=== PATIENT | male | born 1975 | race Caucasian/White ===

== ENCOUNTER 2020-10-21 23:40 | Emergency (ER) | payer BC ==
--- OUTSIDE RECORDS SUMMARY | 2020-10-21 23:43 | XMS REPORT | Continuity of Care Document ---
:1975 Author Organization [facility] t Address [address] [place] [address] Care Team Providers Name Role Phone Team, Health Maintenance Attending Clinician Unavailable Akin Torres DO Attending Clinician Amos BRUSH Attending Clinician Nurse, Urgent Attending Clinician Unavailable Laureen TREJO Attending Clinician Payers Payer Name Policy Type Policy Number Effective Date Expiration Date S ource Problems This patient has no known problems. Allergies, Adverse Reactions, Alerts Allergy Allergy Status Severity Reaction(s) Onset Inactive Treating Comm ents Source Name Type Date Date Clinician No Known DA Active U [facility]ie 03-04 Clear s 00:00: [facility] No Known DA Active U [facility] Contrast 06-07 [place] Allergie 00:: [facility] No Known DA Active U [facility] Drug 06-07 [place] Allergie 00:: [facility] No Known DA Active U 2008- [facility] Food 06-07 [place] Allergie 00:: [facility] No Known DA Active U 2008- [facility] Other 06-07 [place] Allergie 00:: [facility] Medications This patient has no known medications. Procedures This patient has no known procedures. Encounters Start End Encounter Admission Attending Care Care Encounter Source Date/Time Date/Time Type Type Clinicians Facility Department ID 2020-06-15 2020-06-15 Telephone Team, [facility] GARY [id number] 00:00:00 00:00:00 Health [place] [id number]2.686 [phone] [id number] 2020-05-18 2020-05-18 Patient Brian [facility] [id number] 00:00:00 00:00:00 Outreach [place] PRIMARY [id number]2.7.2.686 [place] [phone] [id number] 2020-04-05 2020-04-05 Telephone Amos [facility] [id number] 00:00:00 00:00:00 [facility] [id number] [place] 4.2.7.2.686 [facility] [phone] Primary & 365 Specialty Care 2020-03-10 2020-03-10 [facility] [id number] 00:00:00 00:00:00 [facility] [id number] [place] [address] [place] [address] [phone] Primary & 365 Specialty Care 2020-03-04 2020-03-04 Nurse Nurse, [facility] [id number] 14:21:27 14:36:27 Visit Urgent HEALTH [id number] [place] [address] [place] [address] [phone] Primary & 370 Specialty Care 2020-03-04 2020-03-04 Urgent [facility] [id number] 13:45:00 14:00:00 Care [facility] HEALTH [id number] [place] 4.2.7.2.68[facility] [phone] Primary & 370 Specialty Care Results Test Description Test Time Test Comments Results Result Comments Source GLUBED 2020-03-06 07:26:00 Test Item Value Reference Range Interpretation Comme nts GLUBED (test code = GLUBED) 229 mg/dL 70-110 H BASIC METABOLIC [id number] 04:20:00 Test Item Value Reference Range Interpretation Comments SODIUM (test code = NA) 133 mmol/l 134.0-147.0 L POTASSIUM (test code = K) 3.8 mmol/L 3.6-5.2 N CHLORIDE (test code = CL) 99 mmol/l 98.0-107.0 N CARBON DIOXIDE (test code = CO2) 25.2 mmol/l 21.0-33.0 N ANION GAP (test code = GAP) 12.6 0-20 N GLUCOSE (test code = GLU) 303 mg/dl 70.0-110.0 H BLOOD UREA NITROGEN (test code = 9 mg/dl 7.0-18.0 N BUN) CREATININE (test code = CREAT) 0.83 mg/dL 0.60-1.30 N GFR NON BLACK (test code = 107 mL/min 95-105 H GFRNONBLACK) GFR BLACK (test code = GFRBLACK) 130 mL/min 115-127 H CALCIUM (test code = CA) 8.0 mg/dl 8.0-10.5 N [id number] 03:55:00 Test Item Value Reference Range Interpretation Comments HGBA1C% (test code = HGBA1C%) 10.1 %A1C 4.8-6.0 H ESTIMATED AVERAGE GLUCOSE (test 243 MG/DL code = EAG) CBC W/AUTO [id number] 03:55:00 Test Item Value Reference Range Interpretation Comments WHITE BLOOD CELL (test code = 8.5 K/mm3 4.5-11.0 N WBC) RED BLOOD CELL (test code = 5.26 M/mm3 4.40-5.90 N RBC) HEMOGLOBIN (test code = HGB) 14.9 gm/dL 13.0-17.0 N HEMATOCRIT (test code = HCT) 44.6 % 36.0-48.0 N MEAN CELL VOLUME (test code = 84.8 UM3 80.0-94.0 N MCV) MEAN CELL HGB (test code = MCH) 28.3 UUG 25.5-32.5 N MEAN CELL HGB CONCETRATION 33.4 gm/dL 29.0-35.5 N (test code = MCHC) RED CELL DISTRIBUTION WIDTH 12.1 % 11.5-15.0 N (test code = RDW) RED CELL DISTRIBUTION WIDTH SD 37.0 fL 34.8-50.2 N (test code = RDW-SD) PLATELET COUNT (test code = 219 K/mm3 150-400 N PLT) MEAN PLATELET VOLUME (test code 10.1 fl 7.4-10.4 N = MPV) NEUTROPHIL % (test code = NT%) 60.9 % 49.0-76.0 N IMMATURE GRANULOCYTE % (test 0.2 % 0.0-0.4 N code = IG%) LYMPHOCYTE % (test code = LY%) 29.3 % 23.0-38.0 N MONOCYTE % (test code = MO%) 6.7 % 1.0-10.0 N EOSINOPHIL % (test code = EO%) 2.4 % 1.0-5.0 N BASOPHIL % (test code = BA%) 0.5 % 0.0-1.0 N NUCLEATED RBC % (test code = 0.0 % 0.0-0.1 N NRBC%) NEUTROPHIL # (test code = NT#) 5.2 K/mm3 2.4-6.3 N IMMATURE GRANULOCYTE # (test 0.02 x10 3/uL 0.00-0.07 N code = IG#) LYMPHOCYTE # (test code = LY#) 2.5 K/mm3 1.2-4.0 N MONOCYTE # (test code = MO#) 0.6 K/mm3 0.0-0.6 N EOSINOPHIL # (test code = EO#) 0.2 K/MM3 0.0-0.7 N BASOPHIL # (test code = BA#) 0.0 K/mm3 0.0-0.2 N NUCLEATED RBC # (test code = 0.00 X10 3uL 0.00-0.01 N NRBC#) [id number] 20:23:00 Test Item Value Reference Range Interpretation Comments GLUBED (test code = GLUBED) 345 mg/dL 70-110 H [id number] 11:31:00 Test Item Value Reference Range Interpretation Comments GLUBED (test code = GLUBED) 233 mg/dL 70-110 H URINALYSIS [id number] 19:17:00 Test Item Value Reference Range Interpretation Comments UA COLOR (test code = YELLOW COLU) UA APPEARANCE (test code CLEAR = APPU) UA GLUCOSE DIPSTICK (test 1000 mg/dl mg/dl NORMAL A code = DGLUU) UA BILIRUBIN DIPSTICK NEGATIVE mg/dL NEGATIVE (test code = BILU) UA KETONE DIPSTICK (test 15 mg/dl mg/dl NEGATIVE A code = KETU) UA SPECIFIC GRAVITY (test 1.010 1.000-1.030 code = SGU) UA BLOOD DIPSTICK (test 10 Pieter/micL Pieter/micL NEGATIVE A code = JACQUELINE) UA PH DIPSTICK (test code 5.0 5.0-9.0 = PAT) UA PROTEIN DIPSTICK (test NEGATIVE mg/dl NEGATIVE code = PROU) UA UROBILINIOGEN DIPSTICK NORMAL mg/dl NORMAL (test code = URO) UA NITRITE DIPSTICK (test NEGATIVE NEGATIVE code = BRANDON) UA LEUKOCYTE ESTERASE NEGATIVE Xiomara/micL NEGATIVE DIPSTICK (test code = LEUU) UA WBC (test code = WBCU) NONE SEEN WBC/HPF NONE UA RBC (test code = RBCU) 1-3 RBC/HPF 0-3 UA EPITHELIAL CELLS (test 0-1 EPI/HPF 0-3 code = EPIU) UA BACTERIA (test code = TRACE NONE BACU) DRUGS OF ABUSE SCREEN [id number] 18:42:00 Test Item Value Reference Interpretation Comments Range URN COCAINE (test NEGATIVE NEGATIVE Cocaine cu t-off code = COCAURN) concentratio n: 300 ng/mL URN CANNABINOIDS NEGATIVE NEGATIVE Cannabinoid s cut-off (test code = concentration: 50 ng/mL CANNABURN) URN AMPHETAMINE NEGATIVE NEGATIVE Amphetamine cut-off (test code = concentration: 1000 ng/mL AMPHETURN) URN BARBITURATE NEGATIVE NEGATIVE Barbiturate cut-off (test code = concentration: 200 ng/mL BARBITURN) URN BENZODIAZEPINE NEGATIVE NEGATIVE Benzodiaz epine cut-off (test code = concentration: 200 ng/mL BENZOURN) URN OPIATES (test POSITIVE NEGATIVE A UNCONFIRME D INITIAL code = OPIATURN) SCREENING O NLY; SUGGEST ADDITIONALCONFI RMATORY TESTING.Opiates cut-off concentration: 200 ng/mL URN PHENCYCLIDINE NEGATIVE NEGATIVE Phencyclid ine(PCP) cut-off (PCP) (test code = concentra tion: 25 ng/ml PHENCURN) URN METHADONE (test NEGATIVE NEGATIVE code = METHAURN) - CT ABD PELVIS [id number] 16:40:00 [facility] [place] : 1975 Sex: M FAX: Kristin Weber MD [place]: St: REG Name: DINA RAMIREZ [facility] : 1975 Age/S: 44/M [address] [facility] Unit: [id number] Loc: E.ERS2 [place], [place] Phys: [place] [id number] Acct: [id number] Dis Date: Status: REG ER PHONE #: [phone] Exam Date: 03/04/2020 1623 FAX #: [phone] Reason: ABDOMINAL PAIN EXAMS: CPT CODE: [id number] CT ABD PELVIS W/CONT 24552 LOCATION: H43 EXAM: - CT ABD PELVISW/CONT HISTORY: 4 day history of abdominal pain. TECHNIQUE: Axial imagin g of the abdomen and pelvis from the lung base to the pubic symphysis following administrationof 100 mL Isovue-300 intravenous contrast. Sagittal and coronal reconstructions. CT scan performed using appropriate/available dose optimization/reduction techniques. DLP 829.8 mGy*cm COMPARISON: None. FINDINGS: Lung base:Mild bibasilar atelectasis. The heart size is normal. No pericardial or pleural effusion. Liver/spleen: The heart is mildly enlarged measuring 20.0 cm in length. Hepatic parenchymal density is diffusely decreased, consistent with fatty infiltration of the liver. Hepatic contour issmooth. The spleen is at the upper limit of normal in size measuring 13.0 cm in length. Biliary system: The gallbladder is unremarkable. No biliary duct dilatation. Pancreas: Unremarkable. Adrenal glands: Normal. Kidneys: Unremarkable. Vascular: Normal caliber abdominal aorta. Normal portal venous opacification. Lymph nodes: No abdominal lymphadenopathy. Pelvic structures: The urinary bladder is unremarkably distended. No pelvic lymphadenopathy or free fluid. Reproductiveorgans are within normal limits for age. Gastrointestinal tract: No abnormal bowel dilatation. Normal caliber PAGE 1 Signed Report (CONTINUED) FAX: Kristin Weber MD [place]: St: REG Name: DINA RAMIREZ [facility] : 1975 Age/S: 44/M [address] [facility] Unit: [id number] Loc: E.ERS2 [place], [place]: [place] [id number] Acct: [id number] Dis Date: Status: REG ER PHONE #: [phone] Exam Date: 03/04/2020 1623 FAX #: [phone] Reason: ABDOMINAL PAIN EXAMS: CPT CODE: [id number] CT ABD PELVIS W/CONT 22270 <Continued> appendix is identified. No focal fluid collections, ascites or evidence of pneumoperitoneum. Bones and soft tissues: Osseous structures are intact. IMPRESSION: No CT evidence of acute intra-abdominal pathology. Mild hepatomegaly and findings consistent with hepatic steatosis. at 1640 Reported and signed by: Esperanza Murillo M.D. CC: Kristin García Technologist: MATIAS TELLEZ Trnscrd Dt/Tm: 03/04/2020 (1640) [email or web address] Orig Print D/T: S: 03/04/2020 (1643 PAGE 2 Signed ReportCoronavirus 2019 nCoV [id number] 16:19:00 Test Item Value Reference Range Interpretation Comments Coronavirus 2018 Negative NEGATIVE Negative re sults should be nCoV Bedside (test treated a s presumptive and code = ifinconsistent with [id number]) clinical signs and symptoms, or ne cessaryfor patient managem ent, should be tested with an alternativemole cular assay. Negative result s do not preclude [id number] tion and should not be u sed as the sole basis forp atient management deci sions. Negative result s should beconsidered in the context of a patient's recent exposures,histo ry, presence of clinical sig ns and symptoms consis tentwith COVID-19. BASIC METABOLIC [id number] 15:39:00 Test Item Value Reference Range Interpretation Comments SODIUM (test code = NA) 134 mmol/l 134.0-147.0 N POTASSIUM (test code = K) 4.0 mmol/L 3.6-5.2 N CHLORIDE (test code = CL) 100 mmol/l 98.0-107.0 N CARBON DIOXIDE (test code = CO2) 25.4 mmol/l 21.0-33.0 N ANION GAP (test code = GAP) 12.6 0-20 N GLUCOSE (test code = GLU) 328 mg/dl 70.0-110.0 H BLOOD UREA NITROGEN (test code = 9 mg/dl 7.0-18.0 N BUN) CREATININE (test code = CREAT) 0.77 mg/dL 0.60-1.30 N GFR NON BLACK (test code = 117 mL/min 95-105 H GFRNONBLACK) GFR BLACK (test code = GFRBLACK) 142 mL/min 115-127 H CALCIUM (test code = CA) 8.4 mg/dl 8.0-10.5 N Specimen comments: Clean CatchHEPATIC FUNCTION PANEL [id number] 15:39:00 Test Item Value Reference Range Interpretation Comments TOTAL PROTEIN (test code = PROT) 6.7 gm/dL 6.4-8.2 N ALBUMIN (test code = ALB) 3.3 gm/dl 3.2-4.7 N BILIRUBIN TOTAL (test code = 0.7 mg/dl 0.0-1.0 N BILT) BILIRUBIN DIRECT (test code = 0.1 mg/dl 0.0-0.3 N BILD) SGOT/AST (test code = AST) 20 Units/L 15-37 N SGPT/ALT (test code = ALT) 42 Units/L 12.0-78.0 N ALKALINE PHOSPHATASE TOTAL (test 101 Units/L 50.0-136.0 N code = ALKP) Specimen comments: Clean [id number] 15:39:00 Test Item Value Reference Range Interpretation Comments LIPASE (test code = LIP) 57 Units/L 65.0-230.0 L Specimen comments: Clean [id number] 15:39:00 Test Item Value Reference Range Interpretation Comments TROPONIN-I (test <0.02 NG/ML 0.00-0.06 N REFERENCE R ELMO code = TROPI) TROPONIN I HEA LTHY INDIVIDUALS: < 0.06 ng/mL R/O ISCHE JEWELS: 0.07 - 0.60 ng/ mL CUT-OFF RANGE F OR AMI: 0.60 - 1.5 ng/m L Specimen comments: Clean CatchPROTHROMBIN [id number] 15:36:00 Test Item Value Reference Range Interpretation Comments PROTHROMBIN TIME 12.0 SECONDS 9.9-12.8 N PATIENT (test code = PTP) INTERNATIONAL NORMAL 1.0 0.89-1.14 N THE INR IS TO BE USED RATIO (test code = ONLY FOR MONITORING INR) ORAL ANTICOAGULANTTH ERAPY. THE FOLLOWING A RE SUGGESTED RANGE S FROM [facility] LEGE OF CHEST PHYSICIANS:CARLINE CATION INR VALUEPROPHYLAXI S OF VENOUS THROMBOS IS (ORTHOPEDIC TIFFANIE CARRIE) 2.0 - 3.0PROP HYLAXIS OF VENOUS THROM BOSIS (OTHER THAN HIG H-RISK SURGERY) 2.0 - 3.0TRE ATMENT OF DEEP VEIN THROMBOSIS OR PULMONARY EMBOL ISM 2.0 - 3.0PREV ENTION OF SYSTEMIC EMB OLISM TISSUE HEART VA LVES 2.0 - 3.0 AC AME MYOCARDIAL INFA RCTION (TO PREVENT SYSTEMIC EMBOLI SM) 2.0 - 3.0 ACUTE MYOCARDIA L INFARCTION (TO PREVENT RECURRE NT INFARCT) 2.5 - 3.0 VALV ULAR HEART DISEASE 2.0 - 3.0 ATRIAL FIBRILATION 2.0 - 3.0BILEAFLET MECHANICAL VALV E IN AORTIC POSITION 2.0 - 3.0MECHAN ICAL PROSTHETIC VALV ES (HIGH RISK) 2.5 - 3.5PRESEN CE OF LUPUS ANTICOAGU LANT OR ANTIPHOSPHOLIP ID ANTIBODIES 2.5 - 3 .5 Specimen comments: Clean CatchIs patient on anticoagulants? NTHROMBOPLASTIN TIME [id number] 15:36:00 Test Item Value Reference Range Interpretation Comments THROMBOPLASTIN TIME 26.50 SECONDS 25.86-36.07 N [place] d Lab PARTIAL (test code = Therape utic Range - PTT) APTT of 55.8-85 .4 secondscorrelat es with plasma heparin concentration o f 0.2-0.4 u/mL Ne w range effective - Specimen comments: Clean CatchIs patient on anticoagulants? NBASIC METABOLIC [id number] 15:30:00 Test Item Value Reference Range Interpretation Comments SODIUM (test code = NA) 134 mmol/l 134.0-147.0 N POTASSIUM (test code = K) 4.0 mmol/L 3.6-5.2 N CHLORIDE (test code = CL) 100 mmol/l 98.0-107.0 N CARBON DIOXIDE (test code = CO2) 25.4 mmol/l 21.0-33.0 N ANION GAP (test code = GAP) 12.6 0-20 N GLUCOSE (test code = GLU) mg/dl 70.0-110.0 BLOOD UREA NITROGEN (test code = mg/dl 7.0-18.0 BUN) CREATININE (test code = CREAT) mg/dL 0.60-1.30 GFR NON BLACK (test code = mL/min 95-105 GFRNONBLACK) GFR BLACK (test code = GFRBLACK) mL/min 115-127 CALCIUM (test code = CA) mg/dl 8.0-10.5 Specimen comments: Clean CatchHEPATIC FUNCTION PANEL [id number] 15:30:00 Test Item Value Reference Range Interpretation Comments TOTAL PROTEIN (test code = PROT) gm/dL 6.4-8.2 ALBUMIN (test code = ALB) gm/dl 3.2-4.7 BILIRUBIN TOTAL (test code = BILT) mg/dl 0.0-1.0 BILIRUBIN DIRECT (test code = BILD) mg/dl 0.0-0.3 SGOT/AST (test code = AST) Units/L 15-37 SGPT/ALT (test code = ALT) Units/L 12.0-78.0 ALKALINE PHOSPHATASE TOTAL (test Units/L 50.0-136.0 code = ALKP) Specimen comments: Clean [id number] 15:30:00 Test Item Value Reference Range Interpretation Comments LIPASE (test code = LIP) Units/L 65.0-230.0 Specimen comments: Clean [id number] 15:30:00 Test Item Value Reference Range Interpretation Comments TROPONIN-I (test code = TROPI) NG/ML 0.00-0.06 Specimen comments: Clean CatchCBC W/AUTO [id number] 15:25:00 Test Item Value Reference Range Interpretation Comments WHITE BLOOD CELL (test code = 7.0 K/mm3 4.5-11.0 N WBC) RED BLOOD CELL (test code = 5.64 M/mm3 4.40-5.90 N RBC) HEMOGLOBIN (test code = HGB) 15.7 gm/dL 13.0-17.0 N HEMATOCRIT (test code = HCT) 47.4 % 36.0-48.0 N MEAN CELL VOLUME (test code = 84.0 UM3 80.0-94.0 N MCV) MEAN CELL HGB (test code = MCH) 27.8 UUG 25.5-32.5 N MEAN CELL HGB CONCETRATION 33.1 gm/dL 29.0-35.5 N (test code = MCHC) RED CELL DISTRIBUTION WIDTH 12.1 % 11.5-15.0 N (test code = RDW) RED CELL DISTRIBUTION WIDTH SD 36.5 fL 34.8-50.2 N (test code = RDW-SD) PLATELET COUNT (test code = 183 K/mm3 150-400 N PLT) MEAN PLATELET VOLUME (test code 9.9 fl 7.4-10.4 N = MPV) NEUTROPHIL % (test code = NT%) 73.4 % 49.0-76.0 N IMMATURE GRANULOCYTE % (test 0.1 % 0.0-0.4 N code = IG%) LYMPHOCYTE % (test code = LY%) 19.2 % 23.0-38.0 L MONOCYTE % (test code = MO%) 5.0 % 1.0-10.0 N EOSINOPHIL % (test code = EO%) 1.7 % 1.0-5.0 N BASOPHIL % (test code = BA%) 0.6 % 0.0-1.0 N NUCLEATED RBC % (test code = 0.0 % 0.0-0.1 N NRBC%) NEUTROPHIL # (test code = NT#) 5.1 K/mm3 2.4-6.3 N IMMATURE GRANULOCYTE # (test 0.01 x10 3/uL 0.00-0.07 N code = IG#) LYMPHOCYTE # (test code = LY#) 1.3 K/mm3 1.2-4.0 N MONOCYTE # (test code = MO#) 0.4 K/mm3 0.0-0.6 N EOSINOPHIL # (test code = EO#) 0.1 K/MM3 0.0-0.7 N BASOPHIL # (test code = BA#) 0.0 K/mm3 0.0-0.2 N NUCLEATED RBC # (test code = 0.00 X10 3uL 0.00-0.01 N NRBC#)
[2020-10-22 01:01] LABS: Protime INR 0.92
[2020-10-22 01:02] LABS: Absolute Lymphocytes (CBC) 2.4 K/uL (0.7-4.9); Basophils % 0.6 % (0-1.3); Lymphocytes % 20.5 % (15.3-44.8); MPV 8.4 fL (7.6-11.3); RBC Red Blood Cell Count 5.88 M/uL (4.33-5.43)
[2020-10-22] MEDS ORDERED: ONDANSETRON 4 MG/2 ML VIAL ONE (01:28)
[2020-10-22] MEDS ORDERED: MORPHINE 4 MG/ML SYR ONE (01:28)
[2020-10-22 01:50] LABS: ALT/SGPT 28 U/L (12-78); AST/SGOT 10 U/L (15-37); Albumin 3.6 g/dL (3.4-5.0); Alkaline Phosphatase 108 U/L (45-117); BUN Blood Urea Nitrogen 11 mg/dL (7-18); Bicarbonate 24 mmol/L (21-32); Bilirubin Direct 0.1 mg/dL (0-0.2); Bilirubin Total 0.3 mg/dL (0.2-1.0); Glucose Level 303 mg/dL (74-106); NT PRO-BNP 38 pg/mL (<125); Potassium 3.8 mmol/L (3.5-5.1); Protein, Total 7.2 g/dL (6.4-8.2); Sodium Level 138 mmol/L (136-145); Troponin (Emerg Dept Use Only) < 0.02 ng/mL (0.0-0.045)
[2020-10-22] MEDS ORDERED: ASPIRIN 81 MG CHEWABLE TABLET ONE (02:04)
[2020-10-22] MEDS ORDERED: NA CHLORIDE 0.9% 500 ML ONE (02:04)
[2020-10-22 03:12] LABS: Urine Blood Trace-intact (Negative); Urine Glucose 2+ (Negative); Urine Protein Negative (Negative)
[2020-10-22 03:32] LABS: Barbiturates NEGATIVE (NEGATIVE); Benzodiazepines NEGATIVE (NEGATIVE); Cocaine NEGATIVE (NEGATIVE); METHAMPHETAM NEGATIVE (NEGATIVE); Methadone NEGATIVE (NEGATIVE); Opiates POSITIVE (NEGATIVE); Phencyclidine NEGATIVE (NEGATIVE); THC Cannibis NEGATIVE (NEGATIVE)
[2020-10-22] MEDS ORDERED: KETOROLAC 30 MG/ML INJ ONE (03:57)
[2020-10-22] MEDS ORDERED: NA CHLORIDE 0.9% 1,000 ML ONE (03:58)
[2020-10-22] MEDS ORDERED: IPRATROPIUM BROM 0.5MG/2.5ML ONE (04:12)
[2020-10-22] MEDS ORDERED: ALBUTEROL 2.5 MG/3 ML NEB SOL ONE (04:12)
--- NOTE | 2020-10-22 05:03 | ER ---
Nurse's Notes [facility] Name: Alonzo Feng Age: 44 yrs Sex: Male : 1975 Arrival Date: 10/21/2020 Time: 23:41 Bed 5 Private MD: Diagnosis: Acute bronchitis, unspecified;Chest pain, unspecified;Type 2 diabetes mellitus with hyperglycemia Presentation: 10/21 23:59 Chief complaint: Patient states: Chest pain, SOB, Cough x 1 day. Coronavirus screen: kg Client denies travel out of the [place] in the last 14 days. At this time, unable to obtain information related to travel outside the [place] Client presents with at least one sign or symptom that may indicate coronavirus-19. Standard/surgical mask placed on the client. Provider contacted for isolation considerations. Ebola Screen: Patient negative for fever greater than or equal to 101.5 degrees Fahrenheit, and additional compatible Ebola Virus Disease symptoms Patient denies exposure to infectious person. Patient denies travel to an Ebola-affected area in the 21 days before illness onset. Initial Sepsis Screen: Does the patient meet any 2 criteria? No. Patient's initial sepsis screen is negative. Does the patient have a suspected source of infection? No. Patient's initial sepsis screen is negative. Risk Assessment: Do you want to hurt yourself or someone else? Patient reports no desire to harm self or others. Onset of symptoms was October 20, 2020. 23:59 Method Of Arrival: Ambulatory kg 23:59 Acuity: KARSON 4 kg Triage Assessment: 10/22 00:01 General: Appears in no apparent distress. Behavior is calm, cooperative, appropriate kg for age, quiet. Pain: Complains of pain in diaphragm, left nipple, right breast and left breast Pain radiates to mid back area Pain currently is 7 out of 10 on a pain scale. at worst was 9 out of 10 on a pain scale. Respiratory: Reports shortness of breath at rest on exertion cough that is productive, pain with cough pain with movement pain with respiration Onset: The symptoms/episode began/occurred yesterday, the patient has mild shortness of breath. Historical: - Allergies: 00:01 No Known Allergies; kg - Home Meds: 00:01 metformin 500 mg Oral tab 1 tab 2 times per day [Active]; kg - PMHx: 00:01 NIDDM; kg - PSHx: 00:01 Back SX; Left Shoulder SX; kg - Immunization history:: Adult Immunizations not up to date, Client reports receiving the 1st dose of the Covid vaccine, October 16, 2020 Glofox. - Social history:: Smoking status: Patient reports the use of cigarette tobacco products, smokes one pack cigarettes per day. Screenin:50 Abuse screen: Denies threats or abuse. Denies injuries from another. Nutritional ms4 screening: No deficits noted. Tuberculosis screening: No symptoms or risk factors identified. Fall Risk None identified. Assessment: 00:50 General: Appears in no apparent distress. Behavior is calm, cooperative. Pain: ms4 Complains of pain in left side of chest. Cardiovascular: No deficits noted. Rhythm is regular. Respiratory: Airway is patent Respiratory effort is even, unlabored, Breath sounds are diminished bilaterally. 04:00 Neuro: Level of Consciousness is awake, alert, obeys commands, Oriented to person, lp1 place, time, situation. Cardiovascular: Reports chest pain, Patient's skin is warm and dry. Respiratory: Reports pain with respiration Respiratory effort is even. GI: No signs and/or symptoms were reported involving the gastrointestinal system. : No signs and/or symptoms were reported regarding the genitourinary system. EENT: No signs and/or symptoms were reported regarding the EENT system. Derm: Skin is intact, Skin is dry, Skin is normal. Derm: No deficits noted. Vital Signs: 10/21 23:59 BP 141 / 98; Pulse 65; Resp 20; Temp 98.7; Pulse Ox 97% on R/A; Weight 108.86 kg (R); kg Height 5 ft. 9 in. (175.26 cm); Pain 8/10; 10/22 02:45 BP 166 / 117; Pulse 90; Resp 20; Pulse Ox 100% ; Pain 9/10; ms4 04:21 BP 148 / 72; Pulse 83; Resp 20; Pulse Ox 99% ; Pain 6/10; ms4 05:06 BP 134 / 72; Pulse 92; Resp 20; Pulse Ox 95% on R/A; lp1 10/21 23:59 Body Mass Index 35.44 (108.86 kg, 175.26 cm) kg ED Course: 10/21 23:41 Patient arrived in ED. bp1 10/22 00:01 Triage completed. kg 00:01 Arm band placed on left wrist. EKG completed in triage. Results shown to MD. EKG kg completed in triage. Results shown to MD. 00:34 Carlos Shukla MD is Attending Physician. 7 00:35 COVID-19 : Document "Date of Symptom Onset" if Symptomatic. Sent. oe 00:49 Basic Metabolic Panel Sent. ms4 00:49 CBC with Diff Sent. ms4 00:50 Inserted saline lock: 20 gauge in right forearm, using aseptic technique. Blood ms4 collected. 00:52 XRAY Chest Pa And Lat (2 Views) In Process Unspecified. EDMS 02:32 CT Chest For PE Angio In Process Unspecified. EDMS 03:17 UDS Sent. ms4 03:40 Repeat lab(s) drawn. by me, sent to lab. lp1 04:11 Patient has correct armband on for positive identification. alarm security or surveillance monitor on. Pulse lp1 ox on. NIBP on. 05:01 Ye Santos MD is Referral Physician. [facility] 05:07 No provider procedures requiring assistance completed. lp1 05:16 IV discontinued, No redness/swelling at site. Pressure dressing applied. lp1 Administered Medications: 01:21 Drug: morphine 4 mg Route: IVP; Site: right forearm; ms4 01:21 Follow up: Response: No adverse reaction ms4 01:21 Drug: Zofran (Ondansetron) 4 mg Route: IVP; Site: left forearm; ms4 01:21 Follow up: Response: No adverse reaction ms4 01:45 Drug: NS 0.9% 500 ml Route: IV; Rate: bolus; Site: right antecubital; ms4 01:45 Drug: Aspirin Chewable Tablet 324 mg Route: PO; ms4 01:45 Follow up: Response: No adverse reaction ms4 03:46 Drug: Ketorolac 30 mg Route: IVP; Site: right antecubital; lp1 05:18 Follow up: Response: No adverse reaction lp1 03:47 Drug: NS 0.9% 1000 ml Route: IV; Rate: 1000 ml; Site: right antecubital; lp1 04:07 Drug: Albuterol 2.5 mg Route: Inhalation; ms4 04:07 Drug: AtroVENT (ipratropium) Aerosol 0.5 mg Route: Inhalation; ms4 Outcome: 05:02 Discharge ordered by . carol 05:16 Discharged to home ambulatory. lp1 05:16 Condition: good 05:16 Discharge instructions given to patient, Instructed on discharge instructions, follow up and referral plans. medication usage, Demonstrated understanding of instructions, follow-up care, medications, Prescriptions given X 5 05:18 Patient left the ED. lp1 Signatures: Dispatcher [employer] EDMS Shahnaz Aguayo, RN RN lp1 Roderick Vázquez Brittany bp1 Holmes, Maurice, MD MD 7 Perlita Escobedo RN RN kg Angeli Salcedo RN RN ms4 Corrections: (The following items were deleted from the chart) 00:03 00:01 Home Meds: None; kg kg 02:46 00:50 Inserted saline lock: 22 gauge in right forearm, using aseptic technique. Blood ms4 collected. ms4
--- NOTE | 2020-10-22 05:03 | EDPHYS ---
Physician Documentation [facility] Name: Alonzo Feng Age: 44 yrs Sex: Male : 1975 Arrival Date: 10/21/2020 Time: 23:41 Bed 5 Private MD: ED Physician Carlos Shukla HPI: 10/22 01:03 This 44 yrs old Male presents to ER via Ambulatory with complaints of Breathing mh7 Difficulty, Dizziness, Chest Pain > 30 y/o. 01:03 The patient has shortness of breath at rest, with light activity. Onset: The mh7 symptoms/episode began/occurred yesterday. Duration: The symptoms are intermittent, with no pattern. The patient's shortness of breath is aggravated by coughing, exertion, light activity. Associated signs and symptoms: Pertinent positives: chest pain, non-productive cough, Pertinent negatives: productive cough, diaphoresis, dizziness, fever, hemoptysis, loss of consciousness, nausea, numbness in extremities, visual changes, vomiting. Severity of symptoms: At their worst the symptoms were moderate yesterday, in the emergency department the symptoms are unchanged. Historical: - Allergies: 00:01 No Known Allergies; kg - Home Meds: 00:01 metformin 500 mg Oral tab 1 tab 2 times per day [Active]; kg - PMHx: 00:01 NIDDM; kg - PSHx: 00:01 Back SX; Left Shoulder SX; kg - Immunization history:: Adult Immunizations not up to date, Client reports receiving the 1st dose of the Covid vaccine, October 16, 2020 [employer]. - Social history:: Smoking status: Patient reports the use of cigarette tobacco products, smokes one pack cigarettes per day. ROS: 01:03 Constitutional: Negative for fever, chills, and weight loss, Eyes: Negative for injury, mh7 pain, redness, and discharge, ENT: Negative for injury, pain, and discharge, Neck: Negative for injury, pain, and swelling, Abdomen/GI: Negative for abdominal pain, nausea, vomiting, diarrhea, and constipation, Back: Negative for injury and pain, : Negative for injury, bleeding, discharge, and swelling, MS/Extremity: Negative for injury and deformity, Skin: Negative for injury, rash, and discoloration, Neuro: Negative for headache, weakness, numbness, tingling, and seizure, Psych: Negative for depression, anxiety, suicide ideation, homicidal ideation, and hallucinations, Allergy/Immunology: Negative for hives, rash, and allergies, Endocrine: Negative for neck swelling, polydipsia, polyuria, polyphagia, and marked weight changes, Hematologic/Lymphatic: Negative for swollen nodes, abnormal bleeding, and unusual bruising. Exam: 01:03 Head/Face: Normocephalic, atraumatic. Eyes: Pupils equal round and reactive to light, mh7 extra-ocular motions intact. Lids and lashes normal. Conjunctiva and sclera are non-icteric and not injected. Cornea within normal limits. Periorbital areas with no swelling, redness, or edema. Neck: Trachea midline, no thyromegaly or masses palpated, and no cervical lymphadenopathy. Supple, full range of motion without nuchal rigidity, or vertebral point tenderness. No Meningismus. Chest/axilla: Normal chest wall appearance and motion. Nontender with no deformity. No lesions are appreciated. Cardiovascular: Regular rate and rhythm with a normal S1 and S2. No gallops, murmurs, or rubs. Normal PMI, no JVD. No pulse deficits. 01:03 Abdomen/GI: Soft, non-tender, with normal bowel sounds. No distension or tympany. No guarding or rebound. No evidence of tenderness throughout. Back: No spinal tenderness. No costovertebral tenderness. Full range of motion. Skin: Warm, dry with normal turgor. Normal color with no rashes, no lesions, and no evidence of cellulitis. MS/ Extremity: Pulses equal, no cyanosis. Neurovascular intact. Full, normal range of motion. Neuro: Awake and alert, GCS 15, oriented to person, place, time, and situation. Cranial nerves II-XII grossly intact. Motor strength 5/5 in all extremities. Sensory grossly intact. Cerebellar exam normal. Normal gait. Psych: Awake, alert, with orientation to person, place and time. Behavior, mood, and affect are within normal limits. 01:03 Constitutional: The patient appears in no acute distress, alert, awake, uncomfortable. 01:03 Respiratory: the patient does not display signs of respiratory distress, Respirations: prolonged exhalation, that is mild, Breath sounds: rhonchi, that are mild, are scattered, Respiratory rate: 20 Vital Signs: 10/21 23:59 BP 141 / 98; Pulse 65; Resp 20; Temp 98.7; Pulse Ox 97% on R/A; Weight 108.86 kg (R); kg Height 5 ft. 9 in. (175.26 cm); Pain 8/10; 10/22 02:45 BP 166 / 117; Pulse 90; Resp 20; Pulse Ox 100% ; Pain 9/10; ms4 04:21 BP 148 / 72; Pulse 83; Resp 20; Pulse Ox 99% ; Pain 6/10; ms4 05:06 BP 134 / 72; Pulse 92; Resp 20; Pulse Ox 95% on R/A; lp1 10/21 23:59 Body Mass Index 35.44 (108.86 kg, 175.26 cm) kg MDM: 05:00 Differential diagnosis: Anemia Anxiety Reaction asthma, Bronchitis CHF exacerbation, mh7 Chronic Obstructive Pulmonary Disease Myocardial Infarction pneumonia, Pneumothorax Psychogenic pulmonary edema, Pulmonary Embolism reactive airway disease. Data reviewed: vital signs, nurses notes, lab test result(s), cardiac enzymes, CBC, electrolytes, urinalysis, EKG, radiologic studies, CT scan, plain films. Data interpreted: Pulse oximetry: on room air is 99 %. Interpretation: normal. Counseling: I had a detailed discussion with the patient and/or guardian regarding: the historical points, exam findings, and any diagnostic results supporting the discharge/admit diagnosis, the presence of at least one elevated blood pressure reading (>120/80) during this emergency department visit, lab results, radiology results, the need for outpatient follow up, to return to the emergency department if symptoms worsen or persist or if there are any questions or concerns that arise at home. Response to treatment: the patient's symptoms have resolved after treatment, the patient's blood pressure is in an acceptable range, mental status has returned to baseline, the patient no longer shows bradycardia, the patient is not short of breath, the patient is not tachycardic, the patient's pain is gone, the patient's temperature has normalized, the patient is now symptom free, patient is well hydrated. 05:02 Patient medically screened. [facility] 10/21 23:59 Order name: COVID-19 : Document "Date of Symptom Onset" if Symptomatic. kg 10/22 00:43 Order name: Basic Metabolic Panel lp1 10/22 00:43 Order name: CBC with Diff lp1 10/22 00:43 Order name: LFT's; Complete Time: 01:59 1 10/22 00:43 Order name: Magnesium; Complete Time: 01:59 lp1 10/22 00:43 Order name: NT PRO-BNP; Complete Time: 01:59 lp1 10/22 00:43 Order name: PT-INR; Complete Time: 01:21 lp1 10/22 00:43 Order name: Troponin (emerg Dept Use Only); Complete Time: 01:59 1 10/22 00:44 Order name: Basic Metabolic Panel; Complete Time: 01:59 EDMS 10/22 00:44 Order name: CBC with Automated Diff; Complete Time: 01:21 EDMS 10/22 01:31 Order name: SARS-COV-2 RT PCR; Complete Time: 01:32 EDMS 10/22 02:00 Order name: Lipase; Complete Time: 02:35 [facility] 10/22 02:41 Order name: UDS; Complete Time: 03:34 [facility] 10/21 23:59 Order name: XRAY Chest Pa And Lat (2 Views) kg 10/21 23:59 Order name: EKG - Nurse/Tech; Complete Time: 00:35 kg 10/22 00:43 Order name: EKG; Complete Time: 00:44 [facility] 10/22 00:43 Order name: Cardiac monitoring; Complete Time: 00:44 [facility] 10/22 02:00 Order name: CT Chest For PE Angio [facility] 10/22 03:13 Order name: Urine Dipstick-Ancillary; Complete Time: 03:34 EDMS 10/22 03:43 Order name: Troponin (emerg Dept Use Only) [facility] 10/22 03:44 Order name: Troponin (Emerg Dept Use Only); Complete Time: 04:55 EDMS 10/22 00:43 Order name: IV Saline Lock; Complete Time: 00:44 [facility] 10/22 00:43 Order name: Labs collected and sent; Complete Time: 00:44 1 10/22 00:43 Order name: O2 Per Protocol; Complete Time: 00:44 1 10/22 00:43 Order name: O2 Sat Monitoring; Complete Time: 00:44 [facility] 10/22 01:59 Order name: Urine Dipstick-Ancillary (obtain specimen); Complete Time: 03:17 mh7 Administered Medications: 01:21 Drug: morphine 4 mg Route: IVP; Site: right forearm; ms4 01:21 Follow up: Response: No adverse reaction ms4 01:21 Drug: Zofran (Ondansetron) 4 mg Route: IVP; Site: left forearm; ms4 01:21 Follow up: Response: No adverse reaction ms4 01:45 Drug: NS 0.9% 500 ml Route: IV; Rate: bolus; Site: right antecubital; ms4 01:45 Drug: Aspirin Chewable Tablet 324 mg Route: PO; ms4 01:45 Follow up: Response: No adverse reaction ms4 03:46 Drug: Ketorolac 30 mg Route: IVP; Site: right antecubital; lp1 05:18 Follow up: Response: No adverse reaction lp1 03:47 Drug: NS 0.9% 1000 ml Route: IV; Rate: 1000 ml; Site: right antecubital; lp1 04:07 Drug: Albuterol 2.5 mg Route: Inhalation; ms4 04:07 Drug: AtroVENT (ipratropium) Aerosol 0.5 mg Route: Inhalation; ms4 Disposition Summary: 10/22/20 05:02 Discharge Ordered Location: Home 7 Problem: new [facility] Symptoms: have improved [facility] Condition: Stable [facility] Diagnosis - Acute bronchitis, unspecified mh7 - Chest pain, unspecified 7 - Type 2 diabetes mellitus with hyperglycemia 7 Followup: 7 - With: Private Physician - When: 1 - 2 days - Reason: Worsening of condition, Recheck today's complaints, Continuance of care, Re-evaluation by your physician Followup: 7 - With: Ye Santos MD - When: 1 - 2 days - Reason: Worsening of condition, Recheck today's complaints Discharge Instructions: - Discharge Summary Sheet 7 - Acute Bronchitis, Adult mh7 - Nonspecific Chest Pain, Adult, [id number] 7 - Type 2 Diabetes Mellitus, Diagnosis, Adult [facility] Forms: - Medication Reconciliation Form 7 - Thank You Letter 7 - Antibiotic Education 7 - Prescription Opioid Use [facility] Prescriptions: - albuterol sulfate 90 mcg/actuation Inhalation HFA aerosol inhaler - inhale 2 puff by INHALATION route every 6 hours As needed; 1 Inhaler; Refills: [facility] 0, Product Selection Permitted - metformin 500 mg Oral tablet - take 1 tablet by ORAL route 2 times per day with morning and evening meals; 30 mh7 tablet; Refills: 0, Product Selection Permitted - Tessalon Perles 100 mg Oral Capsule - take 1 capsule by ORAL route every 8 hours As needed; 15 capsule; Refills: 0, mh7 Product Selection Permitted - Zithromax Z-Adebayo 250 mg Oral Tablet - take 1 tablet by ORAL route as directed for 5 days Day 1 - take two (2) tablets mh7 one time. Day 2, 3, 4 , 5 take one (1) tablet once daily.; 6 tablet; Refills: 0, Product Selection Permitted - Prednisone 20 mg Oral Tablet - take 2 tablets by ORAL route once daily for 5 days; 10 tablet; Refills: 0, mh7 Product Selection Permitted Signatures: Dispatcher [employer] EDShahnaz Salguero RN RN lp1 Carlos Shukla MD MD mh7 Perlita Escobedo RN RN kg Angeli Salcedo RN RN ms4 Corrections: (The following items were deleted from the chart) 00:03 00:01 Home Meds: None; kg kg 00:20 10/21 23:59 CORONAVIRUS ordered. EDCT EDMS
[2020-10-22 05:25] VITALS: TEMP 98.7
[2020-10-22 05:29] VITALS: BP 134/72; O2SAT 95
--- NOTE | 2020-10-22 10:40 | EKG ---
Test Date: 2020-10-22 Test Time: 00:09:27 [employer] Helper: IRVING MEASUREMENT RESULTS: Intervals: Rate: 95 TN: 166 QRSD: 74 QT: 318 QTc: 399 [place]: P: 51 TN: 166 QRS: 91 T: 7 INTERPRETIVE STATEMENTS: Normal sinus rhythm Rightward axis Septal infarct, age undetermined Abnormal ECG No previous ECG available for comparison Electronically Signed On 10-22-20 10:39:43 CDT by Sai Mcghee
--- NOTE | 2020-10-23 12:07 | RAD REPORT ---
EXAM DESCRIPTION: CT - Chest For Pe Angio - 10/22/2020 5:11 am CLINICAL HISTORY: 44 years, Male, Chest pain;Cough;SOB COMPARISON: None. TECHNIQUE: Multiple transaxial tomograms of the chest were obtained from the lung apices through the lung bases utilizing 3 mm slice thickness at 3 mm interval reconstruction after the administration o f large bolus of IV contrast for complete opacification of the pulmonary arteries. Subsequent maximum intensity projection images were generated in the coronal and sagittal plane for r eview. This exam was performed according to our departmental dose-optimization protocol, which includes auto mated exposure control, adjustment of the mA and/or kV according to patient size and/or use of iterat dung reconstruction technique. FINDINGS: The lungs parenchyma demonstrate dependent atelectatic changes with decreased lung volume. No significant masses, nodules and/or consolidations are identified. The trachea mainstem bronchus demonstrate to be normal. There is no significant pericardial or pleural effusions. The thoracic aorta demonstrate to be unremarkable. No evidence for significant thoracic aortic dissec tion. No aneurysm. The heart is normal in size. No evidence for right ventricular strain. There are n o coronary artery calcifications. There is no significant mediastinal and/or hilar lymphadenopathy. The axillary regions demonstrate to be clear. Pulmonary arteries demonstrate to be normal, no intraluminal defect are seen that would suggest pulmo nary embolus. The bone windows demonstrate no significant skeletal lesions. There is minimal anteri or spondylosis of the lower thoracic spine The visualized portions of the upper abdomen demonstrate decreased attenuation the liver suggesting f atty infiltration. IMPRESSION: No evidence for pulmonary embolus and/or significant thoracic aortic dissection. Dependent atelectatic changes with decreased lung volume. Fatty infiltration of the liver. Electronically signed by: Ricki Ortiz MD 10/22/2020 2:52 AM CDT Due to temporary technical issues with the PACS/Fluency reporting system, reports are being signed by the in house radiologist without review as a courtesy to ensure prompt reporting. The interpreting r adiologist is fully responsible for the content of the report.
--- NOTE | 2020-10-23 22:38 | RAD REPORT ---
EXAM DESCRIPTION: RAD - Chest Pa And Lat (2 Views) - 10/22/2020 12:53 am CLINICAL HISTORY: 4 years Male, CHEST PAIN COMPARISON: None FINDINGS/IMPRESSION: No focal lung consolidation. No pleural effusion. No pneumothorax. Cardiomediastinal silhouette is mildly enlarged. Vascular congestion and interstitial edema. No acute osseous abnormality. Electronically signed by: Elliott Richey DO 10/22/2020 1:19 AM CDT Due to temporary technical issues with the PACS/Fluency reporting system, reports are being signed by the in house radiologist without review as a courtesy to ensure prompt reporting. The interpreting r adiologist is fully responsible for the content of the report.
== END 2020-10-22 05:18 | disposition home or self-care (01) ==
LOC: ER 23:40
DX: J20.9 Acute bronchitis, unspecified (principal); E11.65 Type 2 diabetes mellitus with hyperglycemia; F17.210 Nicotine dependence, cigarettes, uncomplicated; Z20.822 Contact with and (suspected) exposure to COVID-19
CPT/HCPCS: 93005; 85025; 80048; 36415; 83735; 85610; 80076; 81003; 84484 ×2; 83690; 83880; 80307; 71275; 71046; 99285; U0003; Q9967; J7040; J7030; J2405